=== PATIENT | male | born 1970 | race Caucasian/White ===

== ENCOUNTER 2018-03-02 05:10 | Emergency (ER) | payer OTHER ==
[2018-03-02 05:22] VITALS: RESP 18
--- NOTE | 2018-03-02 06:48 | ED PDOC ---
Upper Extremity Pain/Injury Time Seen by Provider: 03/02/18 06:23 Chief Complaint (Nursing): Finger,Hand,&Wrist Chief Complaint (Provider): Finger,Hand,&Wrist History Per: Patient History/Exam Limitations: no limitations Onset/Duration Of Symptoms: Days (x3), Gradual Current Symptoms Are (Timing): Still Present Additional Complaint(s): Carlton Wiggins is a 47 year old male with no past medical history who is presenting to the ED with complaints of right hand pain gradual in onset 3 days ago. Patient states that about 6 hours ago, the pain worsened exponentially which prompted this ED visit. 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 Patient denies any injury or trauma and states he has not taken any medications for the pain. PMD: none provided Past Medical History Reviewed: Historical Data, Nursing Documentation, Vital Signs Vital Signs: Last Vital Signs Temp 98 F 03/02/18 05:20 Pulse 69 03/02/18 05:20 Resp 18 03/02/18 05:20 BP 122/80 03/02/18 05:20 Pulse Ox 96 03/02/18 05:20 - Medical History PMH: No Chronic Diseases - Surgical History Surgical History: No Surg Hx - Family History Family History: States: Unknown Family Hx - Social History Current smoker - smoking cessation education provided: No Alcohol: Social Drugs: Denies - Home Medications Home Medications: Ambulatory Orders Medication Instructions Recorded Ibuprofen [Motrin] 600 mg PO TID PRN #30 tab 03/02/18 - Allergies Allergies/Adverse Reactions: Allergies Allergy/AdvReac Type Severity Reaction Status Date / Time No Known Allergies Allergy Verified 03/02/18 05:20 Review of Systems ROS Statement: Except As Marked, All Systems Reviewed And Found Negative Musculoskeletal: Positive for: Hand Pain (right) Physical Exam - Reviewed Nursing Documentation Reviewed: Yes Vital Signs Reviewed: Yes - Physical Exam Appears: Positive for: Non-toxic, No Acute Distress Head Exam: Positive for: ATRAUMATIC, NORMAL INSPECTION, NORMOCEPHALIC Extremity: Positive for: Normal ROM, Other (right upper extremity: tenderness along lateral aspect of thumb and wrist). Negative for: Deformity, Swelling Neurologic/Psych: Positive for: Alert, Oriented. Negative for: Motor/Sensory Deficits - ECG O2 Sat by Pulse Oximetry: 96 (RA) Pulse Ox Interpretation: Normal Medical Decision Making Medical Decision Making: Time: 6:39 Impression: thumb pain Differentials: tendonitis Plan: --X-Ray right hand Patient informed regarding the diagnosis of acute tendonitis and what precautions he can take to ensure proper healing. He will be provided a referral to a hand specialist and will get his right hand splinted with a thumb spica splint. Scribe Attestation: Documented by, Destiney Newman acting as a scribe for Sebastian Grove MD. Provider Scribe Attestation: All medical record entries made by the Scribe were at my direction and personally dictated by me. I have reviewed the chart and agree that the record accurately reflects my personal performance of the history, physical exam, medical decision making, and the department course for this patient. I have also personally directed, reviewed, and agree with the discharge instructions and disposition. Disposition - Clinical Impression Clinical Impression: Tendinitis of right hand - Patient ED Disposition Is Patient to be Admitted: Yes Counseled Patient/Family Regarding: Studies Performed, Diagnosis - Disposition Referrals: Roshan Shah MD [Medical Doctor] - Disposition: Routine/Home Disposition Time: 07:00 Condition: GOOD Additional Instructions: Take motrin for pain. Follow up with your PCP in 2-3 days. Prescriptions: Ibuprofen [Motrin] 600 mg PO TID PRN #30 tab PRN Reason: Pain, Severe (8-10) Instructions: Tendonitis
--- NOTE | 2018-03-02 07:56 | ED PDOC ---
- ECG O2 Sat by Pulse Oximetry: 96 (RA) Disposition Counseled Patient/Family Regarding: Studies Performed, Diagnosis, Need For Followup, Rx Given - Clinical Impression Clinical Impression: Tendinitis of right hand - POA Present On Arrival: None - Disposition Referrals: Roshan Shah MD [Medical Doctor] - Disposition: Routine/Home Disposition Time: 07:55 Condition: GOOD Additional Instructions: Take motrin for pain. Follow up with your PCP in 2-3 days. Prescriptions: Ibuprofen [Motrin] 600 mg PO TID PRN #30 tab PRN Reason: Pain, Severe (8-10) Instructions: Tendonitis
[2018-03-02 08:07] VITALS: BP 119/76; PULSE 64; TEMP 97.8
[2018-03-02 10:56] VITALS: O2SAT 96
--- NOTE | 2018-03-02 11:09 | RAD ---
PROCEDURE: Right Hand Radiographs. HISTORY: right thumb right wrist pain COMPARISON: None. FINDINGS: BONES: No acute fracture. JOINTS: Unremarkable. SOFT TISSUES: Normal. OTHER FINDINGS: None. IMPRESSION: No demonstrated fracture or dislocation.
== END 2018-03-02 08:00 | disposition home or self-care (01) ==
LOC: H.ER 05:10
DX: M65.849 Other synovitis and tenosynovitis, unspecified hand (principal)